=== PATIENT | male | born 2000 | race Caucasian/White ===

== ENCOUNTER 2024-06-17 22:47 | Emergency (ER) | payer MEDICAID ==
[~2024-06-17] VITALS: Ht 182.9 cm; Wt 108.4 kg
[2024-06-17 23:16] VITALS: BP 128/76; PULSE 82; RESP 18; TEMP 98; O2SAT 98
[2024-06-18] MEDS ORDERED: IBUP-2213 PO (00:56)
[2024-06-18] MEDS ORDERED: LID5T TP (00:59)
[2024-06-18] MEDS: KETOROLAC 30 MG/ML VIAL IM ONE (01:00)
[2024-06-18] MEDS: LIDOCAINE 5% 1 EA PATCH TP ONE (01:02)
[2024-06-18 01:10] VITALS: BP 128/76; PULSE 82; RESP 18; TEMP 98; O2SAT 98
== END 2024-06-18 01:10 | disposition home or self-care (01) ==
LOC: MED 22:47
DX: S43.401A Unspecified sprain of right shoulder joint, initial encounter (principal); Z79.1 Long term (current) use of non-steroidal anti-inflammatories (NSAID); Z79.899 Other long term (current) drug therapy; V89.2XXA Person injured in unspecified motor-vehicle accident, traffic, initial encounter; Y93.89 Activity, other specified; Y92.89 Other specified places as the place of occurrence of the external cause; Y99.8 Other external cause status
CPT/HCPCS: 96372; 99283; J1885